=== PATIENT | male | born 1985 | race Caucasian/White ===

== ENCOUNTER → 2023-05-28 14:25 | Outpatient (CLI) | payer OTHER, SELFPAY | PROVIDERS: Referring Provider Chiropractor; Visit Provider Chiropractor | DX: R91.1 Solitary pulmonary nodule (principal); I48.0 Paroxysmal atrial fibrillation; Z87.891 Personal history of nicotine dependence | CPT/HCPCS: 93005; 94060 ==

== ENCOUNTER → 2023-05-30 08:17 | Outpatient (CLI) | payer OTHER, SELFPAY ==
--- NOTE | 2023-05-30 | DI.ECHO.S_ITS ---
[facility] +---------+ : : [address] : : : : [id number] : : : : Phone: [phone]---------+ Echocardiogram Report + + :Name: RASHAAD MOYA Study Date: 05/30/2023 Height: 67 in : :[facility] ReadingLocation: Weight: 170 lb : : Gender: Male BSA: 1.9 m2 : :: 1985 Age: 37 yrs BP: 121/81 mmHg: :Reason For Study: CHEST PAIN, ATRIAL FIBRILLATION : :Ordering Physician: JOANA, : :BALTAZAR Performed By: Andressa Trujillo : :Referring: BALTAZAR BERNARD : + + Interpretation Summary The left ventricle is normal in size and wall thickness. The ejection fraction is estimated to be 55-60%. There are no focal wall motion abnormalities. Diastolic parameters suggest probable normal left ventricular diastolic function and normal filling pressures. The right ventricle is normal in size, thickness and function. The left atrial size is normal. Right atrial size is normal. There is no significant valvular heart disease. The aortic root is normal size. Procedure: A two-dimensional transthoracic echocardiogram with color flow and Doppler was performed. The study quality was technically adequate. There is no prior echocardiogram noted for this patient. The patient was in sinus rhythm with heart rates between 74-81 bpm during the exam. Left Ventricle: The left ventricle is normal in size and wall thickness. The ejection fraction is estimated to be 55-60%. There are no focal wall motion abnormalities. Diastolic parameters suggest probable normal left ventricular diastolic function and normal filling pressures. Right Ventricle: The right ventricle is normal in size, thickness and function. Atria: The left atrial size is normal. Right atrial size is normal. There is no Doppler evidence for an interatrial shunt. Mitral Valve: The mitral valve is normal in structure and function. There is trace mitral regurgitation. Aortic Valve: The aortic valve is trileaflet. The aortic valve opens well. There is no aortic valve stenosis. No aortic regurgitation is present. Tricuspid Valve: The tricuspid valve is normal in structure and function. No tricuspid regurgitation. Pulmonary artery pressures cannot be estimated because of the lack of a measurable TR jet velocity. Pulmonic Valve: The pulmonic valve leaflets are thin and pliable; valve motion is normal. There is a trace or physiologic amount of pulmonic regurgitation. There is no significant valvular heart disease. Great Vessels: The aortic root is normal size. The dimensions of the ascending aorta are normal. The IVC is of normal diameter and collapses greater than 50% with a sniff. This suggests a low right atrial pressure of 3 mm Hg. Pericardium/ Pleura There is no pericardial effusion. There is no pleural effusion. MMode/2D Measurements & Calculations LVIDd: 5.5 cm LVOT diam: 2.1 cm LVIDs: 3.8 cm Ao root diam: 3.4 cm FS: 30.7 % asc Aorta Diam: 3.2 cm IVSd: 0.72 cm Ao Arch Diam (Prox Trans): 2.8 cm LVPWd: 0.65 cm LV amador. diameter/BSA (cm/m^2): 2.9 LV sys. diameter/BSA (cm/m^2): 2.0 LA A2 area: 17.3 cm2 RA long axis: 4.2 cm LA A4 area: 13.5 cm2 RA area: 11.9 cm2 LA length (vol): 4.7 cm RA vol: 28.2 ml LA vol: 42.4 ml RA : 15.0 ml/m2 LA vol index: 22.4 ml/m2 IVC diam: 1.4 cm RVD1 (basal): 3.5 cm RVD2 (mid): 3.7 cm TAPSE: 1.9 cm Doppler Measurements & Calculations Ao V2 max: 127.2 cm/sec LVOT Max Seun: 100.8 cm/sec Ao V2 mean: 93.9 cm/sec LV V1 max P.1 mmHg Ao max P.5 mmHg LV V1 VTI: 18.8 cm Ao mean P.8 mmHg SERENE(I,D): 2.5 cm2 Ao V2 VTI: 25.4 cm SERENE(V,D): 2.7 cm2 sev ratio: 0.74 SERENE indexed to BSA (cm^2/m^2): 1.3 MV E max seun: 73.9 cm/sec PA V2 max: 102.6 cm/sec MV A max seun: 57.7 cm/sec PA V2 mean: 69.9 cm/sec MV E/A: 1.3 PA mean P.2 mmHg Med Peak E' Seun: 11.3 cm/sec PA pr(Accel): 29.3 mmHg E/E' med: 6.5 Lat Peak E' Seun: 13.1 cm/sec E/E' lat: 5.6 E/e' average: 6.1 MV dec time: 0.15 sec SV(LVOT): 63.8 ml Reading Physician:03:18 PM
--- NOTE | 2023-05-30 | DI.RAD.S_ITS ---
PROCEDURE: XR CHEST 2V INDICATIONS: PLEURISY TECHNIQUE: 2 views of the chest were acquired. COMPARISON: None. FINDINGS: Surgical changes and devices: None. Lungs and pleura: Lungs are clear. No pleural effusions or pneumothorax. Mediastinum: Mediastinal contours are normal. Heart size is normal. Bones and chest wall: No suspicious bony abnormalities. Soft tissues appear unremarkable. IMPRESSION: No acute cardiopulmonary abnormality is seen. Dictated by: Avi Hanley M.D. on 05/30/2023 at 11:44 Approved by: Avi Hanley M.D. on 05/30/2023 at 11:49
== END ==
PROVIDERS: Referring Provider Chiropractor; Visit Provider Chiropractor
DX: I48.0 Paroxysmal atrial fibrillation (principal); R91.1 Solitary pulmonary nodule
CPT/HCPCS: 71046; 93306